=== PATIENT | male | born 1960 | race Caucasian/White ===

== ENCOUNTER 2017-02-14 05:21 | Outpatient (CLI) | payer MEDICAID | END 2017-02-14 05:22 | disposition critical access hospital (66) | DX: R10.9 Unspecified abdominal pain (principal); M54.9 Dorsalgia, unspecified; R33.9 Retention of urine, unspecified | CPT/HCPCS: A0425; A0429 ==

== ENCOUNTER 2017-02-14 06:00 | Inpatient (IN) | payer MEDICAID ==
[2017-02-14] MEDS ORDERED: DEXAMETHASONE 10 MG/ML VIAL IVP STA (06:15)
[2017-02-14] MEDS ORDERED: SODIUM CHLORIDE 0.9% 1,000 ML IV ONE ×2 (06:15→07:50)
[2017-02-14] MEDS ORDERED: DEXAMETHASONE 10 MG/ML VIAL ONE (06:16)
[2017-02-14] MEDS ORDERED: VANCOMYCIN INJ 1 GM in SODIUM CHLORIDE 0.9% 250 ML IV STA (07:27)
[2017-02-14] MEDS ORDERED: PIPERACILLIN/TAZOBACTAM 3.375 GM in SODIUM CHLORIDE 0.9% MINIBAG 100 ML IV STA (07:28)
[2017-02-14] MEDS ORDERED: VANCOMYCIN 1 GM VIAL ONE (08:07)
[2017-02-14] MEDS ORDERED: ONDANSETRON ODT 4 MG TABLET TL PRN (08:10)
[2017-02-14] MEDS ORDERED: VANCOMYCIN PER PHARMACY 1 GM in SODIUM CHLORIDE 0.9% 250 ML IV SCH (09:00)
[2017-02-14] MEDS: POLYETHYLENE GLYCOL 3350 17 GM PACKET PO SCH (10:09)
[2017-02-14] MEDS: SODIUM CHLORIDE 0.9% 1,000 ML IV SCH ×2 (10:10→21:22)
[2017-02-14] MEDS: ENOXAPARIN 40 MG/0.4 ML SYRINGE SUBQ SCH (10:10)
[2017-02-14] MEDS: INSULIN ASPART 300 UNIT/3 ML PEN SUBQ SCH ×3 (12:24→21:21)
[2017-02-14] MEDS: NICOTINE 14 MG PATCH TOP SCH (12:28)
[2017-02-14] MEDS: SENNA 8.6 MG TABLET PO PRN (12:28)
[2017-02-14] MEDS: DOCUSATE SODIUM 250 MG CAPSULE PO PRN (12:28)
[2017-02-14] MEDS: SODIUM CHLORIDE FLUSH 0.9% 10 ML SYRINGE IVP SCH ×2 (14:22→21:22)
[2017-02-14] MEDS: VANCOMYCIN INJ 1 GM in SODIUM CHLORIDE 0.9% 250 ML IV SCH (17:08)
[2017-02-14] MEDS: oxyCODONE 5 MG TABLET PO PRN (17:25)
[2017-02-14] MEDS: ACETAMINOPHEN 325 MG TABLET PO PRN (17:25)
[2017-02-14] MEDS: MORPHINE 2 MG/ML SYRINGE IVP PRN (19:44)
[2017-02-14] MEDS: ONDANSETRON 4 MG/2 ML VIAL IVP PRN (20:03)
[2017-02-14] MEDS ORDERED: cloNIDine 0.2 MG PATCH TOP SCH (21:00)
[2017-02-14] MEDS: METOCLOPRAMIDE 10 MG/2 ML VIAL IVP PRN (21:17)
[2017-02-15] MEDS: VANCOMYCIN INJ 1 GM in SODIUM CHLORIDE 0.9% 250 ML IV SCH ×2 (00:07→08:32)
[2017-02-15] MEDS: METOCLOPRAMIDE 10 MG/2 ML VIAL IVP PRN ×2 (03:48→11:16)
[2017-02-15] MEDS: SODIUM CHLORIDE FLUSH 0.9% 10 ML SYRINGE IVP SCH ×3 (05:27→21:02)
[2017-02-15] MEDS: ONDANSETRON 4 MG/2 ML VIAL IVP PRN ×2 (07:46→14:10)
[2017-02-15] MEDS: INSULIN ASPART 300 UNIT/3 ML PEN SUBQ SCH ×4 (08:25→20:36)
[2017-02-15] MEDS: ENOXAPARIN 40 MG/0.4 ML SYRINGE SUBQ SCH (08:33)
[2017-02-15] MEDS: NICOTINE 14 MG PATCH TOP SCH ×2 (08:33→14:18)
[2017-02-15] MEDS: POLYETHYLENE GLYCOL 3350 17 GM PACKET PO SCH (08:34)
[2017-02-15] MEDS ORDERED: DOCUSATE SODIUM 250 MG CAPSULE PO SCH (09:00)
[2017-02-15] MEDS ORDERED: SENNA 8.6 MG TABLET PO SCH (09:00)
[2017-02-15] MEDS: SODIUM CHLORIDE FLUSH 0.9% 10 ML SYRINGE IVP PRN (11:16)
[2017-02-15] MEDS ORDERED: GLUCAGON 1 MG/ML VIAL SUBQ PRN (15:16)
[2017-02-15] MEDS ORDERED: DEXTROSE 50% ABBOJECT 25 GM/50 ML SYRINGE IVP PRN (15:16)
[2017-02-15] MEDS ORDERED: DEXTROSE GEL 37.5 GM TUBE PO PRN (15:16)
[2017-02-15] MEDS ORDERED: DEXTROSE 5% 1,000 ML IV PRN (15:16)
[2017-02-15] MEDS: VANCOMYCIN INJ 1 GM, VANCOMYCIN INJ 500 MG in SODIUM CHLORIDE 0.9% 500 ML IV SCH (18:41)
[2017-02-15] MEDS: INSULIN GLARGINE 300 UNIT/3 ML PEN SUBQ SCH (20:35)
[2017-02-16] MEDS: VANCOMYCIN INJ 1 GM, VANCOMYCIN INJ 500 MG in SODIUM CHLORIDE 0.9% 500 ML IV SCH ×2 (01:01→09:13)
[2017-02-16] MEDS: SODIUM CHLORIDE FLUSH 0.9% 10 ML SYRINGE IVP PRN ×7 (01:02→23:33)
[2017-02-16] MEDS: oxyCODONE 5 MG TABLET PO PRN ×3 (01:02→22:42)
[2017-02-16] MEDS: METOCLOPRAMIDE 10 MG/2 ML VIAL IVP PRN ×2 (01:02→21:38)
[2017-02-16] MEDS: MORPHINE 2 MG/ML SYRINGE IVP PRN ×3 (03:55→23:33)
[2017-02-16] MEDS: IBUPROFEN 600 MG TABLET PO PRN ×3 (03:59→23:57)
[2017-02-16] MEDS: SODIUM CHLORIDE FLUSH 0.9% 10 ML SYRINGE IVP SCH ×3 (05:04→20:56)
[2017-02-16] MEDS: INSULIN ASPART 300 UNIT/3 ML PEN SUBQ SCH ×4 (08:57→20:55)
[2017-02-16] MEDS: NICOTINE 14 MG PATCH TOP SCH (08:58)
[2017-02-16] MEDS: ENOXAPARIN 40 MG/0.4 ML SYRINGE SUBQ SCH (08:58)
[2017-02-16] MEDS: POLYETHYLENE GLYCOL 3350 17 GM PACKET PO SCH (08:59)
[2017-02-16] MEDS: DOCUSATE SODIUM 250 MG CAPSULE PO PRN (08:59)
[2017-02-16] MEDS: SENNA 8.6 MG TABLET PO PRN (09:00)
[2017-02-16] MEDS: VANCOMYCIN INJ 2 GM in SODIUM CHLORIDE 0.9% 500 ML IV SCH (20:55)
[2017-02-16] MEDS: INSULIN GLARGINE 300 UNIT/3 ML PEN SUBQ SCH (20:55)
[2017-02-16] MEDS ORDERED: BISACODYL 10 MG SUPP PR ONE (22:26)
[2017-02-17] MEDS: ACETAMINOPHEN 325 MG TABLET PO PRN (04:44)
[2017-02-17] MEDS: oxyCODONE 5 MG TABLET PO PRN ×4 (04:44→18:08)
[2017-02-17] MEDS: SODIUM CHLORIDE FLUSH 0.9% 10 ML SYRINGE IVP SCH ×3 (04:44→20:44)
[2017-02-17] MEDS: SODIUM CHLORIDE FLUSH 0.9% 10 ML SYRINGE IVP PRN ×6 (04:44→20:44)
[2017-02-17] MEDS: ENOXAPARIN 40 MG/0.4 ML SYRINGE SUBQ SCH (08:21)
[2017-02-17] MEDS: NICOTINE 14 MG PATCH TOP SCH (08:22)
[2017-02-17] MEDS: POLYETHYLENE GLYCOL 3350 17 GM PACKET PO SCH (08:22)
[2017-02-17] MEDS: IBUPROFEN 600 MG TABLET PO PRN ×3 (08:23→20:43)
[2017-02-17] MEDS: ONDANSETRON 4 MG/2 ML VIAL IVP PRN (08:26)
[2017-02-17] MEDS: INSULIN ASPART 300 UNIT/3 ML PEN SUBQ SCH ×4 (08:40→20:43)
[2017-02-17] MEDS: VANCOMYCIN INJ 2 GM in SODIUM CHLORIDE 0.9% 500 ML IV SCH ×2 (09:09→20:45)
[2017-02-17] MEDS: MORPHINE 2 MG/ML SYRINGE IVP PRN ×4 (09:59→20:44)
[2017-02-17] MEDS: METOCLOPRAMIDE 10 MG/2 ML VIAL IVP PRN (10:53)
[2017-02-17] MEDS ORDERED: BUPIVACAINE 0.5% PF 30 ML VIAL ONE (14:31)
[2017-02-17] MEDS ORDERED: BUFFERED LIDOCAINE 10 ML SYRINGE ONE (14:39)
[2017-02-17] MEDS: INSULIN GLARGINE 300 UNIT/3 ML PEN SUBQ SCH (20:42)
[2017-02-18] MEDS: oxyCODONE 5 MG TABLET PO PRN ×5 (00:50→21:58)
[2017-02-18] MEDS: ACETAMINOPHEN 325 MG TABLET PO PRN ×3 (00:51→11:34)
[2017-02-18] MEDS: SODIUM CHLORIDE FLUSH 0.9% 10 ML SYRINGE IVP PRN ×7 (00:52→21:51)
[2017-02-18] MEDS: MORPHINE 2 MG/ML SYRINGE IVP PRN ×5 (01:10→20:05)
[2017-02-18] MEDS: SODIUM CHLORIDE FLUSH 0.9% 10 ML SYRINGE IVP SCH ×3 (05:28→21:51)
[2017-02-18] MEDS: VANCOMYCIN INJ 2 GM in SODIUM CHLORIDE 0.9% 500 ML IV SCH ×2 (11:23→21:49)
[2017-02-18] MEDS: POLYETHYLENE GLYCOL 3350 17 GM PACKET PO SCH (11:27)
[2017-02-18] MEDS: ENOXAPARIN 40 MG/0.4 ML SYRINGE SUBQ SCH (11:28)
[2017-02-18] MEDS: NICOTINE 14 MG PATCH TOP SCH (11:31)
[2017-02-18] MEDS: INSULIN ASPART 300 UNIT/3 ML PEN SUBQ SCH ×4 (11:33→21:51)
[2017-02-18] MEDS: IBUPROFEN 600 MG TABLET PO PRN (11:35)
[2017-02-18] MEDS: INSULIN GLARGINE 300 UNIT/3 ML PEN SUBQ SCH (21:50)
[2017-02-19] MEDS: IBUPROFEN 600 MG TABLET PO PRN ×2 (00:09→21:09)
[2017-02-19] MEDS: SODIUM CHLORIDE FLUSH 0.9% 10 ML SYRINGE IVP PRN ×6 (00:10→21:11)
[2017-02-19] MEDS: MORPHINE 2 MG/ML SYRINGE IVP PRN ×5 (03:46→21:10)
[2017-02-19] MEDS: SODIUM CHLORIDE FLUSH 0.9% 10 ML SYRINGE IVP SCH ×3 (06:32→21:10)
[2017-02-19] MEDS: oxyCODONE 5 MG TABLET PO PRN ×3 (06:32→21:09)
[2017-02-19] MEDS: ACETAMINOPHEN 325 MG TABLET PO PRN (06:32)
[2017-02-19] MEDS: INSULIN ASPART 300 UNIT/3 ML PEN SUBQ SCH ×4 (08:58→21:06)
[2017-02-19] MEDS: NICOTINE 14 MG PATCH TOP SCH (09:12)
[2017-02-19] MEDS: ENOXAPARIN 40 MG/0.4 ML SYRINGE SUBQ SCH (09:12)
[2017-02-19] MEDS: VANCOMYCIN INJ 2 GM in SODIUM CHLORIDE 0.9% 500 ML IV SCH ×2 (09:13→21:08)
[2017-02-19] MEDS: POLYETHYLENE GLYCOL 3350 17 GM PACKET PO SCH (09:13)
[2017-02-19] MEDS: SENNA 8.6 MG TABLET PO PRN ×2 (09:13→21:10)
[2017-02-19] MEDS ORDERED: GLIMEPIRIDE 2 MG TABLET PO SCH (17:00)
[2017-02-19] MEDS: INSULIN GLARGINE 300 UNIT/3 ML PEN SUBQ SCH (21:06)
[2017-02-20] MEDS: MORPHINE 2 MG/ML SYRINGE IVP PRN ×3 (00:11→04:56)
[2017-02-20] MEDS: SODIUM CHLORIDE FLUSH 0.9% 10 ML SYRINGE IVP PRN ×3 (00:12→04:57)
[2017-02-20] MEDS: oxyCODONE 5 MG TABLET PO PRN ×2 (02:43→08:25)
[2017-02-20] MEDS: SODIUM CHLORIDE FLUSH 0.9% 10 ML SYRINGE IVP SCH (04:57)
[2017-02-20] MEDS ORDERED: GLIMEPIRIDE 2 MG TABLET PO SCH ×2 (08:00→17:00)
[2017-02-20] MEDS: SENNA 8.6 MG TABLET PO PRN (08:24)
[2017-02-20] MEDS: POLYETHYLENE GLYCOL 3350 17 GM PACKET PO SCH (08:24)
[2017-02-20] MEDS: NICOTINE 14 MG PATCH TOP SCH (08:25)
[2017-02-20] MEDS: ENOXAPARIN 40 MG/0.4 ML SYRINGE SUBQ SCH (08:25)
[2017-02-20] MEDS: DOCUSATE SODIUM 250 MG CAPSULE PO PRN (08:25)
[2017-02-20] MEDS: VANCOMYCIN INJ 2 GM in SODIUM CHLORIDE 0.9% 500 ML IV SCH (08:26)
[2017-02-20] MEDS: INSULIN ASPART 300 UNIT/3 ML PEN SUBQ SCH (09:12)
== END 2017-02-20 10:25 | disposition left against medical advice (07) | DRG 603 ==
PROC: 02HV33Z Insertion of Infusion Device into Superior Vena Cava, Percutaneous Approach (ICD-10-PCS; principal; 2017-02-15)
PROC: 0H9CXZX Drainage of Left Upper Arm Skin, External Approach, Diagnostic (ICD-10-PCS; 2017-02-17)
DX: L03.113 Cellulitis of right upper limb (principal); F11.23 Opioid dependence with withdrawal; B95.62 Methicillin resistant Staphylococcus aureus infection as the cause of diseases classified elsewhere; L02.414 Cutaneous abscess of left upper limb; B19.20 Unspecified viral hepatitis C without hepatic coma; E11.65 Type 2 diabetes mellitus with hyperglycemia; E11.51 Type 2 diabetes mellitus with diabetic peripheral angiopathy without gangrene; E11.42 Type 2 diabetes mellitus with diabetic polyneuropathy; B37.2 Candidiasis of skin and nail; M54.5 Low back pain; F32.9 Major depressive disorder, single episode, unspecified; F41.0 Panic disorder [episodic paroxysmal anxiety]; K42.9 Umbilical hernia without obstruction or gangrene; E66.01 Morbid (severe) obesity due to excess calories; Z68.38 Body mass index [BMI] 38.0-38.9, adult; I25.10 Atherosclerotic heart disease of native coronary artery without angina pectoris; Z95.5 Presence of coronary angioplasty implant and graft; F17.210 Nicotine dependence, cigarettes, uncomplicated; I25.2 Old myocardial infarction